=== PATIENT | male | born 1985 | race Caucasian/White ===

== ENCOUNTER → 2017-08-04 | Outpatient (CLI) | payer BC ==
--- NOTE | 2017-08-04 09:41 | DIAGNOSTIC IMAGING REPORT ---
LEFT HAND MIN 3 VIEWS ROUTINE CLINICAL HISTORY: L40.9 [id number] Polyarthritis, [id number] NSAID long arthritis. Pain. COMPARISON: None. DISCUSSION: The bones and joint spaces appear intact. There is no evidence of fracture, dislocation or bony disease. There is no evidence for soft tissue swelling. IMPRESSION: Negative study. The above report was generated using voice recognition software. It may contain grammatical, syntax or spelling errors. Electronically signed by: Chuck Santos M.D. 08/04/2017 9:40 AM Dictated Date/Time: 08/04/2017 9:39 AM
--- NOTE | 2017-08-04 09:42 | DIAGNOSTIC IMAGING REPORT ---
RIGHT FOOT MIN 3 VIEWS ROUTINE HISTORY: 32 years-old Male L40.9 [id number] Polyarthritis, [id number] NSAID long Right acute right sided foot pain with history of psoriatic arthropathy. COMPARISON: None available. TECHNIQUE: 3 views of the right foot. FINDINGS: There is mild asymmetric thickening involving the mid diaphyseal medial cortex of the third metatarsal without fracture identified. There is no acute dislocation or erosive changes. No significant degenerative changes. Negative for opaque foreign body. There is minimal spurring of the calcaneus. IMPRESSION: 1. No acute bony abnormality. No evidence of erosive arthropathy. 2. Mild asymmetric thickening involves the mid diaphyseal medial cortex of the third metatarsal which may reflect healing stress fracture/stress response. 3. Minimal spurring about the calcaneus. The above report was generated using voice recognition software. It may contain grammatical, syntax or spelling errors. Electronically signed by: Stevan Joshi M.D. 08/04/2017 9:40 AM Dictated Date/Time: 08/04/2017 9:38 AM
--- NOTE | 2017-08-04 09:42 | DIAGNOSTIC IMAGING REPORT ---
RIGHT HAND 3 VIEWS CLINICAL HISTORY: Psoriasis. Polyarthritis. FINDINGS: 3 views of the right hand are obtained. No prior studies are available for comparison at the time of dictation. The skeletal structures are well mineralized. No fracture is seen. The joint spaces of the hand are well-maintained. No erosive change is identified. The overlying soft tissues are within normal limits. IMPRESSION: No acute bony abnormality or significant arthritic change is identified in the right hand. Electronically signed by: Zhen Danielle M.D. 08/04/2017 9:40 AM Dictated Date/Time: 08/04/2017 9:39 AM
== END | disposition home or self-care (01) ==
LOC: C.RAD1850 09:21
PROVIDERS: ATTEND Internal Medicine Rheumatology
DX: L40.9 Psoriasis, unspecified (principal); M06.4 Inflammatory polyarthropathy; Z51.81 Encounter for therapeutic drug level monitoring; Z79.1 Long term (current) use of non-steroidal anti-inflammatories (NSAID); M77.31 Calcaneal spur, right foot

== ENCOUNTER → 2018-02-23 | Outpatient (CLI) | payer OTHER ==
[2018-02-23 17:47] LABS: EOS % 0.5 %; EOS ABS # 0.04 K/uL (0-0.5); HEMATOCRIT 40.5 % (42-52); HEMOGLOBIN 13.9 g/dL (14.0-18.0); IG# 0.02 K/uL (0.00-0.02); LYMPH % 15.6 %; LYMPH ABS # 1.19 K/uL (1.2-3.4); MEAN CELL VOLUME 84.2 fL (80-100); MEAN CORPUSCULAR HEMOGLOBIN 28.9 pg (25-34); MEAN CORPUSCULAR HGB CONC 34.3 g/dl (32-36); MEAN PLATELET VOLUME 9.6 fL (7.4-10.4); MONO % 9.8 %; MONO ABS # 0.75 K/uL (0.11-0.59); NEUT % 73.8 %; NEUT ABS # 5.62 K/uL (1.4-6.5); PLATELET COUNT 213 K/uL (130-400); RED CELL DISTRIBUTION WIDTH CV 12.3 % (11.5-14.5); RED CELL DISTRIBUTION WIDTH SD 37.5 fL (36.4-46.3); WHITE BLOOD COUNT 7.62 K/uL (4.8-10.8)
[2018-02-23 18:22] LABS: ALBUMIN 3.9 gm/dl (3.4-5.0); ALKALINE PHOSPHATASE 97 U/L (45-117); ALT/SGPT 18 U/L (12-78); AST/SGOT 14 U/L (15-37); TOTAL PROTEIN 7.9 gm/dl (6.4-8.2)
[2018-02-23 18:23] LABS: TRANSFERRIN 222 mg/dl (200-360)
== END | disposition home or self-care (01) ==
LOC: C.LAB1850 16:23
PROVIDERS: ATTEND Internal Medicine Rheumatology
DX: M25.569 Pain in unspecified knee (principal); Z79.1 Long term (current) use of non-steroidal anti-inflammatories (NSAID)